=== PATIENT | female | born 1990 | race Caucasian/White ===

== ENCOUNTER 2023-09-01 09:22 | Outpatient (REF) | payer OTHER, SELFPAY | END 2023-09-01 09:23 | disposition home or self-care (01) | LOC: HO.SH 09:22 | PROVIDERS: PCP Internal Medicine; Visit Provider Internal Medicine | DX: Z01.118 Encounter for examination of ears and hearing with other abnormal findings (principal); H90.3 Sensorineural hearing loss, bilateral | CPT/HCPCS: 92557; 92567 ==

== ENCOUNTER 2024-08-28 09:48 | Outpatient (REF) | payer OTHER, SELFPAY ==
--- OUTSIDE RECORDS SUMMARY | 2024-08-28 10:59 | XMS_ITS | Encounter Summary ---
Author Organization [facility] Address [address] [place] [address] Phone Care Team Providers Care Bakery Chef Name Role Phone Angle Varela MD Primary Care Provider Unavailab le Encounter Details Date Type Department Care Team (Late st Contact Info) Description 09/25/2017 Conversion Encounter Child [address] [phone] Herve Francis NP Social History Tobacco Use Types Packs/Day Years Used Date Smoking Tobacco: Never Assessed Comments Unknown Sex and Gender Information Value Date Recorded Sex Assigned at Not on file Legal Sex Female 6:16 PM EDT Gender Identity Not on file Sexual Orientation Not on file documented as of this encounter Plan of Treatment Not on file documented as of this encounter Visit Diagnoses Not on filedocumented in this encounter Care Teams Bakery Chef Relationship Specialty Start Date End Date Angle Varela MD PCP - General 09/14/17 04/20/18 documented as of this encounter
--- OUTSIDE RECORDS SUMMARY | 2024-08-28 10:59 | XMS_ITS ---
Author Name [facility] Organization Unknown Care Team Organization Name Specialty Phone Email Start Date End Da te [facility] Not Disclosed Primary Care 09/15/2023 [facility] Not Disclosed Primary Care 09/15/2023
--- OUTSIDE RECORDS SUMMARY | 2024-08-28 10:59 | XMS_ITS | Encounter Summary ---
Author Organization [facility] Address [address] [place] [address] Care Team Providers Care Ceramic Saw Tender Name Role Phone Violet Mckeon MD Primary Care Provider [phone] Encounter Details Date Type Department Care Team (Late Contact Info) Description 07/24/2024 Telephone Endocrinology - [place] [address] [place] [address] Jessie Perez PA [address] [place] [address] Social History Tobacco Use Types Packs/Day Years Used Date Smoking Tobacco: Never Smokeless Tobacco: Never Alcohol Use Standard Drinks/Week Comments Not Currently 0 (1 standard drink = 0.6 oz pur e alcohol) Comments No Sex and Gender Information Value Date Recorded Sex Assigned at Not on file Legal Sex Female 5:42 AM EST Gender Identity Not on file Sexual Orientation Not on file documented as of this encounter Progress Notes * Josee Espitia RN - 07/24/2024 3:52 PM EDT Will answer in result management * Manuel Villalobos - 07/24/2024 1:24 PM EDT Patient returned call to Josee documented in this encounter Plan of Treatment Upcoming Encounters Date Type Department Care Team (Late Contact Info) Description 07/16/2025 7:30 AM EDT Office Visit Endocrinology - [place] [address] [place] [address] Jessie Perez PA [address] [place] [address] documented as of this encounter Visit Diagnoses Not on filedocumented in this encounter Care Teams Ceramic Saw Tender Relationship Specialty Start Date End Date Violet Mckeon MD [address] [place] [address] PCP - General Internal Medicine 10/29/15 documented as of this encounter
--- OUTSIDE RECORDS SUMMARY | 2024-08-28 10:59 | XMS_ITS | Clinical Summary ---
Author Organization [facility] Address [address] [place] [address] Phone Care Team Providers Care Musculoskeletal Physician Name Role Phone Unavailable Primary Care Provider Unavailabl e Immunizations Immunization Administration Dates Next Due DTaP 12/17/1997, 5,05/13/1993, 993,01/07/1993 HPV, Quadrivalent 12/19/2007,08/21/2007,06/20/19 08 Hep B 08/07/1993,1992,1992 HiB 02/09/1994, 4,03/18/1993, 993 IPV 12/17/1997, 5,03/18/1993, 993 MMR 02/20/1998,02/09/1994 Meningococcal Conj (Menactra) MCV4P 12/29/2011 Meningococcal Polysaccharide 06/20/2007 PPD Test 12/17/1997 Td 01/21/2004 Tdap 07/24/2009 Varicella 07/04/2008,02/20/1998 Family History Relation Name Status Comments Other : Parents woodrow al status: * Family history of high blood pressure (Father,Paternal Grandfather) * Family history of diabetes mellitus (Maternal Grandfather,Paternal Grandmother) * Family history of stroke (Maternal Grandfather) Social History Tobacco Use Types Packs/Day Years Used Date Smoking Tobacco: Never Assessed Comments Unknown Sex and Gender Information Value Date Recorded Sex Assigned at Not on file Legal Sex Female 6:16 PM EDT Gender Identity Not on file Sexual Orientation Not on file Last Filed Vital Signs Vital Sign Reading Time Taken Comments Blood Pressure 122/70 05/17/2014 3:01 PM EST Pulse - - Temperature 36.9 ??C (98.5 ??F) 07/02/2014 3:34 PM ES T Respiratory Rate - - Oxygen Saturation - - Inhaled Oxygen Concentration - - Weight 104 kg (230 lb 0.2 oz) 05/17/2014 3:01 PM EST Height 172.7 cm (5' 8 ) 05/17/2014 3:01 PM EST Body Mass Index 34.97 05/17/2014 3:01 PM EST Plan of Treatment Health Maintenance Due Date Last Done Comments DTaP,Tdap,and Td Vaccines (7 - Td or Tdap) 07/25/2019 07/24/2009, 01/21/2004, 12/17/1997, Additional history exists Influenza Vaccines (#1) 2023 COVID-19 Vaccine ( season) 2024 Hepatitis B Vaccines Completed 08/07/1993, 1992, 1992 HIB Vaccines Completed 02/09/1994, 09/1993, 03/18/1993, Additional history exists IPV Vaccines Completed 12/17/1997, 09/1994, 03/18/1993, Additional history exists MMR Vaccines Completed 02/20/1998, 02/09/1994 HPV Vaccines Completed 12/19/2007, 08/07, 06/20/2007 Varicella Vaccines Completed 07/04/2008, 02/20/1998 Meningococcal Vaccine Aged Out 12/29/2011 No patricio artem eligible based on patient's age to complete this topic Hepatitis A Vaccines Aged Out No long er eligible based on patient's age to complete this topic Men B Vaccine Aged Out No longer elig ible based on patient's age to complete this topic Pneumococcal Vaccine Aged Out No long er eligible based on patient's age to complete this topic
--- OUTSIDE RECORDS SUMMARY | 2024-08-28 10:59 | XMS_ITS | Clinical Summary ---
Author Organization [facility] [address] [place] [address] Address [address] [place], [place] Phone Care Team Providers Care Gas Engineer Name Role Phone Violet Mckeon MD Primary Care Provider [phone] Allergies Active Allergy Reactions Criticality Noted Date Comments Cefpodoxime 11/06/2015 Medications norgestimate-eth inyl estradioL (ORTHO-CYCLEN) 0.25-35 mg-mcg per tablet Take 1 tablet by mouth 1 (one) time each day. 84 tablet 4 06/06/2024 Active levothyroxine (SYNTHROID, LEVOTHROID) 100 mcg tabletIndication s:Hypothyroidism , unspecified TAKE 1 TABLET BY MOUTH EVERY DAY TAKE 1.5 TABS ON TUESDAY. TAKE 2 TABS ON TUESDAY. 108 tablet 1 07/09/2024 Active Active Problems Problem Noted Date Diagnosed Date Morbid obesity with BMI of 4 5.0-49.9, adult ([facility] V24, [facility] V28) 04/04/2024 Recurrent oral herpes simplex 03/20/2016 Asthma 11/27/2015 Hypothyroid 11/06/2015 PCOS (polycystic ovarian syndrome) 11/06/2015 Encounters Date Type Department Care Team Description 07/24/[address] [phone] Jessie Perez PA 07/13/2024 7:30 AM EST Office Visit Endocrinology [address] [phone] Jessie Perez PA Hypothyroidism, unspecified type (Primary Dx) 06/06/2024 2:30 PM EST Office Visit Obstetrics and Gynecology - [place] [address] [place] [address] Beatris Leos CNM Encounter for gynecological examination without abnormal finding (Primary Dx) from Last 3 Months Immunizations Name Administration Dates Next Due Moderna (age 6mo & older) Bi valent, COVID-19, 0.5 mL or 0.25 mL dosage 08/04/2022 Rabies Vaccine, For Intramus cular Injection Retired Code 01/02/2022,12/29/2021,12/26/2021 Tdap Tetanus diptheria acell ular pertussis (Boostrix; Adacel) 7yo and older 11/27/2015 Surgical History Surgery Date Site/Laterality Comments WISDOM TOOTH EXTRACTION 2010 PROCEDURE: HISTORICAL WISDOM TEETH EXTRACTION ADENOIDECTOMY 2001 PROCEDURE: HISTORICAL ADENOIDECTOMY Medical History Medical History Date Comments PCOS (polycystic ovarian syndrome) DX:PCOS (polycystic ovarian syndrome) Hypothyroid DX:Hypothyroid Asthma DX:Asthma MRSA infection DX:MRSA infectio n Family History Medical History Relation Name Comments Other: PKU Brother x 1 Hypertension Father Stroke Maternal Grandfather Hyperthyroidism Maternal Grandmother Hash imoto's Lung cancer Paternal Grandfather Non-smo ker, ?Asbestos Breast cancer Neg Hx Colon cancer Neg Hx Kidney cancer Neg Hx Ovarian cancer Neg Hx Pancreatic cancer Neg Hx Prostate cancer Neg Hx Uterine cancer Neg Hx Relation Name Status Comments Brother x 1 Alive Father Alive Maternal Grandfather Maternal Grandmother Mother Alive Paternal Grandfather Paternal Grandmother Alive Social History Tobacco Use Types Packs/Day Years Used Date Smoking Tobacco: Never Smokeless Tobacco: Never Tobacco Cessation:Counseling Given: Not Answered Alcohol Use Standard Drinks/Week Comments Not Currently 0 (1 standard drink = 0.6 oz pur e alcohol) Comments No Sex and Gender Information Value Date Recorded Sex Assigned at Not on file Legal Sex Female 5:42 AM EST Gender Identity Not on file Sexual Orientation Not on file Obstetrics History Para Term AB IAB SAB Ectopic Multiple Livin g Live Births 0 0 0 0 0 0 0 0 0 0 0 Last Filed Vital Signs Vital Sign Reading Time Taken Comments Blood Pressure 104/76 07/13/2024 7:33 AM EST C Pulse 86 07/13/2024 7:33 AM EST Temperature 36.3 ??C (97.3 ??F) 07/13/2024 7:33 AM ES T Respiratory Rate - - Oxygen Saturation 98% 07/13/2024 7:33 AM EST Inhaled Oxygen Concentration - - Weight 127 kg (281 lb) 07/13/2024 7:33 AM EST Height 170.2 cm (5' 7 ) 07/13/2024 7:33 AM EST Body Mass Index 44.01 07/13/2024 7:33 AM EST Plan of Treatment Upcoming Encounters Date Type Department Care Team (Late st Contact Info) Description 07/16/2025 7:30 AM EDT Office Visit Endocrinology - [place] [address] [place] [address] Jessie Perez PA [address] [place] [address] Health Maintenance Due Date Last Done Comments Pneumococcal Vaccine: Pediatrics (0 to 5 Years) and At-Risk Patients (6 to 64 Years) (1 of 2 - PCV) 11/08/2011 Depression Screening 04/11/2022 HIV Screening 04/11/2022 Hepatitis C Screening 04/11/2022 Social Influencers of Health Screening 04/11/2022 COVID-19 Vaccine ( season) 2024 08/04/2022 Influenza Vaccine (Season Ended) 2025 DTaP,Tdap,and Td Vaccines (9 - Td or Tdap) 11/26/2025 11/27/2015, 07/24/2009, 01/21/2004, Additional history exists Cervical Cancer Screening: HPV 12/14/2026 12/14/2021 Cholesterol Screening (Lipid Panel) 03/06/2029 03/06/2024, 03/06/2024 Hepatitis B Vaccines Completed 08/07/1993, 1992, 1992 HIB Vaccines Completed 02/09/1994, 09/1993, 03/18/1993, Additional history exists IPV Vaccines Completed 12/17/1997, 09/1994, 03/18/1993, Additional history exists MMR Vaccines Completed 02/20/1998, 02/09/1994 HPV Vaccines Completed 12/19/2007, 08/07, 06/20/2007 Varicella Vaccines Completed 07/04/2008, 02/20/1998 Meningococcal ACWY Vaccine Aged Out 12/29/2011, No longer eligible based on patient's age to complete this topic Hepatitis A Vaccines Aged Out No long er eligible based on patient's age to complete this topic Meningococcal B Vaccine Aged Out No l onger eligible based on patient's age to complete this topic RSV Immunization Patients Under 20 months Aged Out No longer eligible based on patient's age to complete this topic Procedures Procedure Name Priority Date/Time Associated Diagnosis Comments TRIIODOTHYRONINE FREE Routine 07/20/2024 4:43 PM EDT Hypothyroidism, unspecified type FREE THYROXINE WITH REFLEX TO FREE TRIIODOTHYRONINE Routine 07/20/2024 4:43 PM EDT Hypothyroidism, unspecified type THYROID STIMULATING HORMONE WITH REFLEX TO FREE T4 AND FREE T3 Routine 07/20/2024 4:43 PM EDT Hypothyroidism, unspecified type LIPID PANEL Routine 03/06/2024 HM HPV Routine 12/14/2021 from Last 3 Months or Most Recently Relevant to Health Maintenance Results * (ABNORMAL) Thyroid stimulating hormone with reflex to free t4 and free t3 (07/20/2024 4:43 PM EDT) TSH 6.56(H) 0.40 - 4.00 mcIU/mL LAB CHEMISTRY METHOD 07/20/2024 6:42 PM EDT [facility] Blood Venous blood specimen / Unknown Venipuncture / Unknown 07/20/2024 4:43 PM EDT 07/20/2024 4:43 PM EDT us Jessie MOORE LAB BLOOD ORDERABLES Final Result [facility] [address] [place] [address], [place] [phone] * Free thyroxine with reflex to free triiodothyronine (07/20/2024 4:43 PM EDT) Free T4 1.09 0.70 - 1.80 ng/dL LAB CHEMISTRY METHOD 07/20/2024 7:07 PM EDT [facility] Blood Venous blood specimen / Unknown Venipuncture / Unknown 07/20/2024 4:43 PM EDT 07/20/2024 4:43 PM EDT Jessie MOORE LAB BLOOD ORDERABLES Final Result [facility] [address] [place] [address], [place] [phone] * Triiodothyronine free (07/20/2024 4:43 PM EDT) Pathologist [facility] T3, Free 290 230 - 420 pcg/dL LAB CHEMISTRY METHOD 07/20/2024 7:32 PM EDT [facility] Blood Venous blood specimen / Unknown Venipuncture / Unknown 07/20/2024 4:43 PM EDT 07/20/2024 4:43 PM EDT Jessie MOORE LAB BLOOD ORDERABLES Final Result [facility] [address] [place] [address], [place] [phone] * (ABNORMAL) Lipid panel (03/06/2024) [facility] LDL/HDL Ratio 3 0 - 4 Triglycerides 172(A) 0 - 150 mg/dL Cholesterol 169 0 - 200 mg/dL HDL 51 >=40 mg/dL LDL Cholesterol 84 0 - 100 mg/dL Blood Venous blood specimen / Unknown Historical Provider LAB BLOOD ORDERABLES Kortney l Result * Hm Cervical Cancer Screening: HPV (12/14/2021) Cervical Cancer Screening: HPV abstracted, negative us Historical Provider HEALTH MAINTENANCE Final Result from Last 3 Months or Most Recently Relevant to Health Maintenance [place] [facility] Care Teams Gas Engineer Relationship Specialty Start Date End Date Violet Mckeon MD [address] [place] [address] PCP - General Internal Medicine 10/29/15
== END 2024-08-28 09:49 | disposition home or self-care (01) ==
LOC: HO.SH 09:48
PROVIDERS: Visit Provider Physician Assistant
DX: Z01.118 Encounter for examination of ears and hearing with other abnormal findings (principal); H93.293 Other abnormal auditory perceptions, bilateral
CPT/HCPCS: 92552; 92556